=== PATIENT | male | born 1985 | race Caucasian/White ===

== ENCOUNTER 2022-04-19 10:42 | Emergency (ER) | payer BC ==
[2022-04-19] MEDS ORDERED: Lidocaine 2% Viscous Solution 15 ML UD PO ONE (11:01)
[2022-04-19] MEDS ORDERED: Benzocaine 20% Topical Spray UD MUCMEM ONE (11:01)
== END 2022-04-19 11:32 | disposition home or self-care (01) ==
LOC: MW.ED 10:42
DX: K04.7 Periapical abscess without sinus (principal)
CPT/HCPCS: 99282; A9270

== ENCOUNTER 2022-06-25 15:16 | Emergency (ER) | payer BC ==
[2022-06-25] MEDS ORDERED: Sodium Chloride 0.9% 10 ML Syringe FLUSH PRN (15:23)
[2022-06-25] MEDS ORDERED: Sodium Chloride 0.9% 2.5 ML Syringe FLUSH PRN (15:23)
[2022-06-25 16:21] LABS: CARBON DIOXIDE,CO2 26.4 mmol/L (21.0-32.0)
[2022-06-25 16:36] LABS: CORONAVIRUS COVID-19 NAA NEGATIVE (NEGATIVE); INFLUENZA A NAA NEGATIVE (NEGATIVE); INFLUENZA B NAA NEGATIVE (NEGATIVE)
[2022-06-25] MEDS ORDERED: Morphine 4 MG/ML Syringe IVPUSH ONE (16:41)
[2022-06-25] MEDS ORDERED: Ondansetron 4 MG/2 ML SDV IVPUSH ONE (16:41)
[2022-06-25] MEDS ORDERED: Iopamidol 755 MG/ML 500 ML Multipack Bottle IVPUSH ONE (17:14)
== END 2022-06-25 18:36 | disposition home or self-care (01) ==
LOC: MW.ED 15:16
DX: R10.31 Right lower quadrant pain (principal); I10 Essential (primary) hypertension; Z72.0 Tobacco use; Z20.822 Contact with and (suspected) exposure to COVID-19
CPT/HCPCS: 0240U; 36415; 74177; 80053; 81003; 85025; 96374; 96375; 99284; J2270; J2405; J3490; Q9967

== ENCOUNTER 2022-11-16 13:27 | Emergency (ER) | payer BC | END 2022-11-16 14:31 | disposition home or self-care (01) | LOC: MW.ED 13:27 | DX: K02.9 Dental caries, unspecified (principal); I10 Essential (primary) hypertension; F17.210 Nicotine dependence, cigarettes, uncomplicated; Z79.899 Other long term (current) drug therapy | CPT/HCPCS: 99282 ==